=== PATIENT | female | born 1970 | race Hispanic/Latino ===

== ENCOUNTER → 2021-08-26 | Day surgery (SDC) | payer OTHER ==
[~2021-08-26] MED LIST: FUROSEMIDE40 MG PO; HYDROCHLOROTHIA25 MG PO; KEPPRA500 MG PO; VITAMIN D3125 MCG PO; [UNRECOGNIZED DRUG - OTHER] PO
[2021-08-26 08:43] VITALS: BP 106/79
== END | disposition home or self-care (01) ==
LOC: OR 06:51
PROVIDERS: ATTEND Internal Medicine Gastroenterology
DX: K52.9 Noninfective gastroenteritis and colitis, unspecified (principal); K63.3 Ulcer of intestine; K57.30 Diverticulosis of large intestine without perforation or abscess without bleeding; Z98.0 Intestinal bypass and anastomosis status; Z71.3 Dietary counseling and surveillance; R56.9 Unspecified convulsions; I10 Essential (primary) hypertension; R73.03 Prediabetes; Z12.11 Encounter for screening for malignant neoplasm of colon; E66.01 Morbid (severe) obesity due to excess calories; Z88.1 Allergy status to other antibiotic agents; Z01.810 Encounter for preprocedural cardiovascular examination; Z01.812 Encounter for preprocedural laboratory examination; Z20.822 Contact with and (suspected) exposure to COVID-19; Z68.43 Body mass index [BMI] 50.0-59.9, adult
CPT/HCPCS: 45380; 81025; 93005; U0002; 45378